=== PATIENT | male | born 1965 | race Caucasian/White ===

== ENCOUNTER 2018-10-06 22:36 | Observation (INO) ==
[2018-10-06] MEDS ORDERED: Aspirin 325 MG Tablet PO ONE (22:41)
--- NOTE | 2018-10-06 23:01 | XR ---
EXAM DATE: 10/06/2018 10:56 PM EST AGE/SEX: 53 years / Male INDICATIONS: Chest pain. CLINICAL DATA: This is the patient's initial encounter. Patient reports that signs and symptoms have been present for 1 day and indicates a pain score of 3/10. MEDICAL/SURGICAL HISTORY: Hypertension. . Bilateral foot surgery. COMPARISON: No prior exams available for comparison. FINDINGS: A single AP view of the chest demonstrates the lungs to be symmetrically aerated without evidence of mass, infiltrate or effusion. The cardiomediastinal contours are unremarkable. Osseous structures a re intact. CONCLUSION: No acute cardiopulmonary process. Electronically signed by: Harshad Ramos MD Board Certified Radiologist 10/06/2018 10:59 PM EST
--- NOTE | 2018-10-06 23:02 | ED ---
HPI General Chief Complaint: Chest Pain Stated Complaint: Chest Pain Time Seen by Provider: 10/06/18 22:40 Source: patient and family Mode of arrival: ambulatory Limitations: no limitations History of Present Illness HPI narrative: Mr Maier is a 53 year old male who presents to the ED via [facility] for evaluation of chest pain that began several days ago. He describes the pain as intermittent pressure over the left chest that he rates as a 7-8/10 when it occurs. He denies pain currently. He states that when the pain occurs he also has lightheadedness, SOB with exertion, and tingling in the left arm. He states he has never had an episode like this before. He denies radiation. He denies cough, nausea, vomiting, syncope, changes in urination, or abdominal pain. His PMH is significant for hypercholesterolemia and HTN. He has a family history of cardiac disease. The patient has taken 7 baby ASA today, 4 at 5pm and 3 more at 9pm without relief. The patient is a former smoker, having quit many years ago, and denies alcohol or drug use. Related Data Home Medications Medication Instructions Recorded Confirmed aspirin 81 mg PO DAILY 10/06/18 10/06/18 atorvastatin 20 mg PO QPM 10/06/18 10/06/18 losartan 50 mg PO DAILY 10/06/18 10/06/18 Allergies Allergy/AdvReac Type Severity Reaction Status Date / Time No Known Allergies Allergy Verified 10/06/18 22:38 Review of Systems ROS: all other systems reviewed are negative PMFSH Medical History Medical History HTN (hypertension) (Acute) High cholesterol (Acute) Surgical History Surgical History History of orthopedic surgery (Acute) Social History Social History Substance History: No History of Abuse Second Hand Smoke Exposure: No Smoking Status: Former smoker Tobacco Type: Cigarettes How Often Do You Have a Drink Containing Alcohol: Monthly or less Recent Travel in [facility] within the Last 8 Weeks: No Recent Out of Country Travel within the Last 8 Weeks: No Immunization History Tetanus Immunization: >5 Years Exam Narrative Exam Narrative: GENERAL: Patient is a well developed well nourished patient in [facility]. SKIN: Warm and dry. HEAD: Atraumatic. Normocephalic. EYES: Pupils equal and round and reactive to light. No scleral icterus. No injection or drainage. ENT: No nasal bleeding or discharge. Mucous membranes pink and moist. NECK: Trachea midline. No JVD. CARDIOVASCULAR: Regular rate and rhythm. No murmurs rubs or gallops. No pain with palpation of the sternum or ribs on the left. RESPIRATORY: No accessory muscle use. Clear to auscultation. Breath sounds equal bilaterally. GASTROINTESTINAL: Abdomen soft, non-tender, nondistended. Hepatic and splenic margins not palpable. MUSCULOSKELETAL: Extremities without clubbing, cyanosis, or edema. No obvious deformities. Full ROM of the upper and lower extremities bilaterally. 2+ pulses in the upper and lower extremities bilaterally. NEUROLOGICAL: Awake and alert. No obvious cranial nerve deficits. Motor grossly within normal limits. Five out of 5 muscle strength in the arms and legs. Normal speech. PSYCHIATRIC: Appropriate mood and affect; insight and judgment normal. Course Initial Documented Vital Signs Temperature 98.4 F 10/06/18 22:37 Pulse Rate 83 10/06/18 22:37 Respiratory Rate 18 10/06/18 22:37 Blood Pressure 186/106 H 10/06/18 22:37 Pulse Oximetry 98 10/06/18 22:37 Last Documented Vital Signs Temperature 98.0 F 10/07/18 01:15 Pulse Rate 87 10/07/18 01:50 Respiratory Rate 16 10/07/18 01:15 Blood Pressure 130/79 10/07/18 01:15 Pulse Oximetry 97 10/07/18 01:15 Medical Decision Making MDM Narrative Medical decision making narrative: 53 yo male here for evaluation of chest pain. Labs and imaging ordered. No aspirin or nitro given as patient asymptomatic and has already had 325 mg of aspirin. Labs and imaging showed no sign of acute disease. Will admit to chest pain center. Discussed with my attending Dr Rainey who agrees. Family and patient agree with plan. Patient admitted to chest pain center by me. Medical Screen Exam Complete: Yes Emergency Medical Condition: Yes Differential Diagnosis Differential Diagnosis: chest pain vs ACS vs atypical chest pain vs unstable angina vs NSTEMI Medical Records Medical records reviewed: Yes I reviewed the patient's medical records. Lab Data Lab results reviewed: Yes I reviewed the patient's lab results. Result diagrams: 10/06/18 22:56 10/06/18 22:56 Lab Results 10/06/18 10/06/18 10/06/18 Range/Units 22:56 22:56 22:56 WBC 7.4 (4.0-11.0) th/mm3 RBC 5.14 (4.50-5.90) mil/mm3 Hgb 16.8 (13.0-17.0) gm/dL Hct 47.5 (39.0-51.0) % MCV 92.3 (80.0-100.0) fL MCH 32.6 (27.0-34.0) pg MCHC 35.3 (32.0-36.0) % RDW 13.7 (11.6-17.2) % Plt Count 186 (150-450) th/mm3 MPV 8.5 (7.0-11.0) fL Neut % (Auto) 58.1 (16.0-70.0) % Lymph % (Auto) 31.4 (9.0-44.0) % Dubois % (Auto) 8.1 H (0.0-8.0) % Eos % (Auto) 1.6 (0.0-4.0) % Baso % (Auto) 0.8 (0.0-2.0) % Neut # (Auto) 4.3 (1.8-7.7) th/mm3 Lymph # (Auto) 2.3 (1.0-4.8) th/mm3 Dubois # (Auto) 0.6 (0.0-0.9) th/mm3 Eos # (Auto) 0.1 (0.0-0.4) th/mm3 Baso # (Auto) 0.1 (0.0-0.2) th/mm3 WBC Differential . Differential Comment Auto diff final PT 10.0 (9.8-11.6) sec INR 1.0 Ratio APTT 28.2 (23.4-31.7) sec Sodium 139 (136-145) meq/L Potassium 4.5 (3.5-5.1) meq/L Chloride 104 (98-107) meq/L Carbon Dioxide 27.5 (21.0-32.0) meq/L Anion Gap 8 (5-15) meq/L BUN 15 (7-18) mg/dL Creatinine 1.05 (0.60-1.30) mg/dL Estimated GFR 73 L (>89) mL/min Random Glucose 85 (74-106) mg/dL Calcium 9.0 (8.5-10.1) mg/dL Magnesium 2.1 (1.5-2.5) mg/dL Total Bilirubin 0.8 (0.2-1.0) mg/dL AST 23 (15-37) U/L ALT 34 (12-78) U/L Alkaline Phosphatase 56 (45-117) U/L Total Creatine Kinase 193 (39-308) U/L CK-MB (CK-2) 1.7 (0.5-3.6) ng/mL Troponin I Less than 0.02 L (0.02-0.05) ng/mL Total Protein 8.2 (6.4-8.2) g/dL Albumin 4.3 (3.4-5.0) g/dL 10/07/18 Range/Units 02:17 WBC (4.0-11.0) th/mm3 RBC (4.50-5.90) mil/mm3 Hgb (13.0-17.0) gm/dL Hct (39.0-51.0) % MCV (80.0-100.0) fL MCH (27.0-34.0) pg MCHC (32.0-36.0) % RDW (11.6-17.2) % Plt Count (150-450) th/mm3 MPV (7.0-11.0) fL Neut % (Auto) (16.0-70.0) % Lymph % (Auto) (9.0-44.0) % Dubois % (Auto) (0.0-8.0) % Eos % (Auto) (0.0-4.0) % Baso % (Auto) (0.0-2.0) % Neut # (Auto) (1.8-7.7) th/mm3 Lymph # (Auto) (1.0-4.8) th/mm3 Dubois # (Auto) (0.0-0.9) th/mm3 Eos # (Auto) (0.0-0.4) th/mm3 Baso # (Auto) (0.0-0.2) th/mm3 WBC Differential Differential Comment PT (9.8-11.6) sec INR Ratio APTT (23.4-31.7) sec Sodium (136-145) meq/L Potassium (3.5-5.1) meq/L Chloride (98-107) meq/L Carbon Dioxide (21.0-32.0) meq/L Anion Gap (5-15) meq/L BUN (7-18) mg/dL Creatinine (0.60-1.30) mg/dL Estimated GFR (>89) mL/min Random Glucose (74-106) mg/dL Calcium (8.5-10.1) mg/dL Magnesium (1.5-2.5) mg/dL Total Bilirubin (0.2-1.0) mg/dL AST (15-37) U/L ALT (12-78) U/L Alkaline Phosphatase (45-117) U/L Total Creatine Kinase 169 (39-308) U/L CK-MB (CK-2) (0.5-3.6) ng/mL Troponin I Less than 0.02 L (0.02-0.05) ng/mL Total Protein (6.4-8.2) g/dL Albumin (3.4-5.0) g/dL Imaging Data Attestation: I personally reviewed and interpreted this imaging study as follows : Radiologist's impression: Chest X-Ray 10/06/18 22:41 CONCLUSION: No acute cardiopulmonary process. ECG Data Attestation: I personally reviewed and interpreted this ECG as follows: Interpretation: EKg shows sinus rhythm with no sign of acute ischemia or arrythmia read by me and attending. Discharge Plan Discharge Disposition Patient Disposition: ED Admit(ED Internal Use Only) Discharge Order Discharge Orders: ED Use Only Admit Order (Routine); Ordered 10/07/18 Ordered By: Brett Alvarez Discharge Details Diagnosis: Chest pain, rule out acute myocardial infarction Physicians Team ED Provider: Fara Rainey ED Midlevel Provider: Brett Alvarez Primary Care Provider: Primary Care WilliamiGia Attending Provider: Ridge Melgar Status ED Status: Left Department Discharge Information Discharge Date/Time: 10/07/18 01:20
[2018-10-06 23:16] LABS: Baso # (Auto) 0.1 th/mm3 (0.0-0.2); Baso % (Auto) 0.8 % (0.0-2.0); Eos # (Auto) 0.1 th/mm3 (0.0-0.4); Eos % (Auto) 1.6 % (0.0-4.0); Hematocrit 47.5 % (39.0-51.0); Hemoglobin 16.8 gm/dL (13.0-17.0); Lymph # (Auto) 2.3 th/mm3 (1.0-4.8); Lymph % (Auto) 31.4 % (9.0-44.0); Mean Corpuscular HGB Conc 35.3 % (32.0-36.0); Mean Corpuscular Hemoglobin 32.6 pg (27.0-34.0); Mean Corpuscular Volume 92.3 fL (80.0-100.0); Mean Platelet Volume 8.5 fL (7.0-11.0); Mono # (Auto) 0.6 th/mm3 (0.0-0.9); Mono % (Auto) 8.1 % (0.0-8.0); Neut # (Auto) 4.3 th/mm3 (1.8-7.7); Neut % (Auto) 58.1 % (16.0-70.0); Platelet Count 186 th/mm3 (150-450); Red Blood Count 5.14 mil/mm3 (4.50-5.90); Red Cell Distribution Width 13.7 % (11.6-17.2); White Blood Count 7.4 th/mm3 (4.0-11.0)
[2018-10-06 23:30] LABS: Activated Partial Thrombo Time 28.2 sec (23.4-31.7)
[2018-10-06 23:51] LABS: Alanine Aminotransferase 34 U/L (12-78)
[2018-10-06 23:55] LABS: Alkaline Phosphatase 56 U/L (45-117); Creatine Kinase 193 U/L (39-308); Total Protein 8.2 g/dL (6.4-8.2)
[2018-10-06 23:56] LABS: Albumin 4.3 g/dL (3.4-5.0); Anion Gap 8 meq/L (5-15); Aspartate Aminotransferase 23 U/L (15-37); Blood Urea Nitrogen 15 mg/dL (7-18); Carbon Dioxide 27.5 meq/L (21.0-32.0); Chloride 104 meq/L (98-107); Glomerular Filtration Rate 73 mL/min (>89); Glucose,Random 85 mg/dL (74-106); Magnesium 2.1 mg/dL (1.5-2.5); Potassium 4.5 meq/L (3.5-5.1); Sodium 139 meq/L (136-145)
[2018-10-07 00:07] LABS: Creatine Kinase MB 1.7 ng/mL (0.5-3.6)
[2018-10-07 02:55] LABS: Creatine Kinase 169 U/L (39-308)
[2018-10-07 05:52] LABS: Creatine Kinase 135 U/L (39-308)
[2018-10-07 07:30] VITALS: BP 162/100; PULSE 92; RESP 18; TEMP 98.4; O2SAT 98
--- NOTE | 2018-10-07 08:15 | P.HPCA ---
History of Present Illness Primary Care Physician: Dr. Solorzano Chief Complaint: Chest pain History of Present Illness: 53 year old male with history of hypertension and hyperlipidemia presents to ER for further evaluation of chest pain. Onset 2 days ago. Describing a " fluttering sensation with skipped heart beats." Duration hours. Yesterday again felt fluttering sensation for hours, resolving over time. A few hours later, while driving home developed chest pain. Location left anterior chest. Characterized tight squeeze. No associated symptoms of nausea, vomiting, dyspnea , or diaphoresis. Duration 3 minutes. No radiation, although reports left arm/ hand was "tingling." No precipitating or relieving factors. Once home took a 3 hour nap and at that time encouraged him to check bp at [employer]. Reports bp reading 167/97 and 160/100. Due to combined symptoms over last 2 days, came to ER for further evaluation. No recent illness, cough, or injury. Past cardiac testing None Social history Known hypertension and hyperlipidemia. No known CAD or diabetes. Former smoker, quit many years ago. No alcohol or recreational drug use. . Endorses an active lifestyle. 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 Family history Positive for early onset cardiovascular disease. Father from [place] age 52. Grandfather from [place] age 62. - Diagnosis (1) Chest pain, rule out acute myocardial infarction (2) History of hypertension (3) History of hyperlipidemia Review of Systems All other systems reviewed negative except as stated in HPI PMFSH - History History Provided By: Patient - Medical History Medical History: Medical History (Last Reviewed 10/07/18 @ 07:54 by COLBY Patrick) HTN (hypertension) High cholesterol - Surgical History Surgical History: Surgical History (Last Reviewed 10/07/18 @ 07:54 by COLBY Patrick) History of orthopedic surgery - Family History Family History: Family History (Last Updated 10/07/18 @ 08:06 by COLBY Patrick) Father Myocardial infarct Grandparent Myocardial infarct - Social History I have reviewed the patient's Social History: Yes - Tobacco History Second Hand Smoke Exposure: No Smoking Status: Former smoker Tobacco Type: Cigarettes - Alcohol History How Often Do You Have a Drink Containing Alcohol: Monthly or less - Substance Use History Substance History: No History of Abuse - Travel History Recent Travel in the [place] Within the Last 8 Weeks: No Recent Travel Out of the Country Within the Last 8 Weeks: No - Immunization History Tetanus Immunization: >5 Years Medications and Allergies Active Medications: Active Medications Losartan Potassium (Cozaar) 50 mg PO DAILY GABY Sodium Chloride (Ns Flush) 2 ml IV.FLUSH PRN PRN PRN Reason: FLUSH AFTER USING IV ACCESS Sodium Chloride (Ns Flush) 2 ml IV.FLUSH BID GABY Allergies Allergy/AdvReac Type Severity Reaction Status Date / Time No Known Allergies Allergy Verified 10/06/18 22:38 Home Medications Medication Instructions Recorded Confirmed Type aspirin 81 mg PO DAILY 10/06/18 10/06/18 History atorvastatin 20 mg PO QPM 10/06/18 10/06/18 History losartan 50 mg PO DAILY 10/06/18 10/06/18 History Exam Vital signs: Vital Signs 10/06/18 22:37 10/06/18 22:48 10/06/18 22:52 Temperature 98.4 F Pulse Rate 83 93 H 93 H Respiratory Rate 18 19 Blood Pressure 186/106 H 181/94 H Pulse Oximetry 98 97 10/06/18 23:00 10/06/18 23:47 10/07/18 01:02 Temperature Pulse Rate 77 71 Respiratory Rate 17 16 Blood Pressure 148/78 H 124/75 Pulse Oximetry 97 94 L 97 10/07/18 01:15 10/07/18 01:50 10/07/18 04:00 Temperature 98.0 F 99.1 F Pulse Rate 70 87 73 Respiratory Rate 16 16 Blood Pressure 130/79 118/74 Pulse Oximetry 97 96 10/07/18 07:16 10/07/18 07:29 Temperature 98.4 F Pulse Rate 92 H Respiratory Rate 18 Blood Pressure 162/100 H Pulse Oximetry 96 98 Intake & Output 10/06/18 10/07/18 10/07/18 18:59 06:59 18:59 Weight 98.43 kg Other: Date of Last Bowel Movement 10/06/18 Weight On Admission 98.43 kg Narrative: GENERAL: Alert WN, WD, NAD, pleasant, overweight male HEAD: NC, AT EYES: Sclera clear, conjunctiva without injection, pupils equal and round ENT: Mucous membranes pink and moist NECK: Supple, no masses, trachea midline CV: RRR, without murmur, rub, gallop, no JVD, S1-S2. Chest wall nontender to palpation. RESP: Clear lungs throughout bilateral, no crackles, wheeze, rhonchi, symmetrical chest rise, nonlabored, able to speak in full sentences ABD: Soft, NT, ND, no masses, positive bowel tones EXT: Pulses +2x4, no dependent edema MS: Normal tone x4 extremities, nontender, no obvious deformities, full range of motion NEURO: Motor strength 5/5 PSYCH: A+O x3, pleasant affect, appropriate speech, mood, insight and judgment SKIN: Normal turgor, normal texture, no lesions, no rashes, brisk cap refill, even hair distribution Results 10/06/18 22:56 18 22:56 Cardiac Enzymes 18 18 10/07/18 Range/Units 22:56 02:17 05:10 AST 23 (15-37) U/L CK-MB (CK-2) 1.7 (0.5-3.6) ng/mL Troponin I Less than 0.02 L Less than 0.02 L Less than 0.02 L (0.02-0.05) ng/mL Coagulation 10/06/18 Range/Units 22:56 PT 10.0 (9.8-11.6) sec APTT 28.2 (23.4-31.7) sec CBC 10/06/18 Range/Units 22:56 WBC 7.4 (4.0-11.0) th/mm3 RBC 5.14 (4.50-5.90) mil/mm3 Hgb 16.8 (13.0-17.0) gm/dL Hct 47.5 (39.0-51.0) % Plt Count 186 (150-450) th/mm3 Neut # (Auto) 4.3 (1.8-7.7) th/mm3 Lymph # (Auto) 2.3 (1.0-4.8) th/mm3 [place]offey # (Auto) 0.6 (0.0-0.9) th/mm3 Eos # (Auto) 0.1 (0.0-0.4) th/mm3 Baso # (Auto) 0.1 (0.0-0.2) th/mm3 Comprehensive Metabolic Panel 10/06/18 Range/Units 22:56 Sodium 139 (136-145) meq/L Potassium 4.5 (3.5-5.1) meq/L Chloride 104 (98-107) meq/L Carbon Dioxide 27.5 (21.0-32.0) meq/L BUN 15 (7-18) mg/dL Creatinine 1.05 (0.60-1.30) mg/dL Calcium 9.0 (8.5-10.1) mg/dL AST 23 (15-37) U/L ALT 34 (12-78) U/L Alkaline Phosphatase 56 (45-117) U/L Total Protein 8.2 (6.4-8.2) g/dL Albumin 4.3 (3.4-5.0) g/dL Intake and Output 10/06/18 10/07/18 10/07/18 22:59 06:59 14:59 Other: Date of Last Bowel Movement 10/06/18 Weight 98.43 kg 98.43 kg Weight On Admission 98.43 kg - Imaging and Cardiology Imaging: Impressions Chest X-Ray 10/06/18 22:41 CONCLUSION: No acute cardiopulmonary process. EKG interpretations - EKG EKG results cardiology: sinus rhythm (Right bundle branch block) Caprini VTE Risk Assessment Caprini VTE Risk Assessment: No/Low Risk (score <= 1) Caprini Risk Assessment Model: Point Value = 1 Point Value = 2 Point Value = 3 Point Value = 5 Age 41-60 Minor surgery BMI > 25 kg/m2 Swollen legs Varicose veins or History of unexplained or recurrent spontaneous Oral contraceptives or hormone replacement Sepsis (< 1 month) Serious lung disease, including pneumonia (< 1 month) Abnormal pulmonary function Acute myocardial infarction Congestive heart failure (< 1 month) History of inflammatory bowel disease Medical patient at bed rest Age 61-74 Arthroscopic surgery Major open surgery (> 45 min) Laparoscopic surgery (> 45 min) Malignancy Confined to bed (> 72 hours) Immobilizing plaster cast Central venous access Age >= 75 History of VTE Family history of VTE Factor V Leiden Prothrombin [id number] Lupus anticoagulant Anticardiolipin antibodies Elevated serum homocysteine Heparin-induced thrombocytopenia Other congenital or acquired thrombophilia Stroke (< 1 month) Elective arthroplasty Hip, pelvis, or leg fracture Acute spinal cord injury (< 1 month) Prophylaxis Regimen: Total Risk Factor Score Risk Level Prophylaxis Regimen 0-1 Low Early ambulation 2 Moderate Order ONE of the following: *Sequential Compression Device (SCD) *Heparin 5000 units SQ BID 3-4 Higher Order ONE of the following medications: *Heparin 5000 units SQ TID *Enoxaparin/Lovenox 40 mg SQ daily (WT < 150 kg, CrCl > 30 mL/min) *Enoxaparin/Lovenox 30 mg SQ daily (WT < 150 kg, CrCl > 10-29 mL/min) *Enoxaparin/Lovenox 30 mg SQ BID (WT < 150 kg, CrCl > 30 mL/min) AND/OR *Sequential Compression Device (SCD) 5 or more Highest Order ONE of the following medications: *Heparin 5000 units SQ TID (Preferred with Epidurals) *Enoxaparin/Lovenox 40 mg SQ daily (WT < 150 kg, CrCl > 30 mL/min) *Enoxaparin/Lovenox 30 mg SQ daily (WT < 150 kg, CrCl > 10-29 mL/min) *Enoxaparin/Lovenox 30 mg SQ BID (WT < 150 kg, CrCl > 30 mL/min) AND *Sequential Compression Device (SCD) Assessment and Plan - Assessment (1) Chest pain, rule out acute myocardial infarction Code(s): R07.9 - Chest pain, unspecified Status: Acute Plan: Admitted chest pain center. ACS ruled out 3 sets of EKGs and cardiac enzymes. Seen and evaluated by Dr. Jordi Estrella. Proceed with nuclear exercise cardiac testing this a.m. (2) History of hypertension Code(s): Z86.79 - Personal history of other diseases of the circulatory system Status: Chronic Plan: Continue losartan. (3) History of hyperlipidemia Code(s): Z86.39 - Personal history of other endocrine, nutritional and metabolic disease Status: Chronic Plan: Continue atorvastatin. Encouraged him to discuss with his primary care provider increasing dose of statin therapy due to family early onset cardiovascular disease. H&P: Quality - VTE Deep Vein Thrombosis/Pulmonary Embolism Present on Admission: No
--- NOTE | 2018-10-07 11:49 | NM ---
EXAM DATE: 10/07/2018 11:37 AM EST AGE/SEX: 53 years / Male INDICATIONS: Angina. . Chest pain. CLINICAL DATA: This is the patient's initial encounter. Patient reports that signs and symptoms have been present for 2 days and indicates a pain score of 3/10. MEDICAL/SURGICAL HISTORY: Hypercholesterolemia. Hypertension. None. COMPARISON: No prior exams available for comparison. DOSE: 8.8 mCi Tc 99m Myoview at rest 25.4 mCi [id number] at stress REST HEART RATE: 99 BPM TARGET HEART RATE: 140 BPM MAX HEART RATE: 141 BPM REST BLOOD PRESSURE: 128/80 mmHg MAX BLOOD PRESSURE: 130/80 mmHg EJECTION FRACTION: 70 % TECHNIQUE: The patient underwent upright treadmill exercise in the chest pain center. Continuous EC G tracing was monitored during stress. Gated SPECT imaging was performed after stress, and conventio nal SPECT imaging was performed at rest. The examination was performed on a SPECT/CT scanner, both a ttenuation-corrected and non-corrected datasets were reviewed. FINDINGS: Distribution: The maximum perfused segment at stress is in the anterior lateral wall Perfusion: The pattern of perfusion at stress is within normal limits. Gated Study: There are intact wall motion and wall thickening without hypokinetic or dyskinetic segme nts. The ejection fraction is calculated at 70%. RISK CATEGORY: Low (<1% Annual Motality Rate) CONCLUSION: 1. Negative for stress-induced ischemia. Electronically signed by: Demarcus Kenney MD Board Certified Radiologist 10/07/2018 11:48 AM EST
--- NOTE | 2018-10-07 15:10 | ECG ---
Date Performed: 10/07/2018 Time Performed: 05:08:52 PTAGE: 53 years EKG: Sinus rhythm RIGHT BUNDLE BRANCH BLOCK ABNORMAL ECG PREVIOUS TRACING : 10/07/2018 02.40 Since previous tracing, no significant change noted DOCTOR: Jordi Estrella Interpretating Date/Time 10/07/2018 15:09:30
--- NOTE | 2018-10-07 15:11 | ECG ---
Date Performed: 10/06/2018 Time Performed: 22:46:35 PTAGE: 53 years EKG: Sinus rhythm POSSIBLE LEFT ATRIAL ENLARGEMENT RIGHT BUNDLE BRANCH BLOCK ABNORMAL ECG PREVIOUS TRACING : 10/06/2018 22.45 Since previous tracing, no significant change noted DOCTOR: Jordi Estrella Interpretating Date/Time 10/07/2018 15:10:10
--- NOTE | 2018-10-07 15:11 | ECG ---
Date Performed: 10/07/2018 Time Performed: 02:40:30 PTAGE: 53 years EKG: Sinus rhythm WITH FREQUENT SUPRAVENTRICULAR PREMATURE COMPLEXES RIGHT BUNDLE BRANCH BLOCK ABNORMAL ECG NO PREVIOUS TRACING DOCTOR: Jordi Estrella Interpretating Date/Time 10/07/2018 15:09:37
--- NOTE | 2018-10-07 15:16 | TR ---
Date Performed: 10/07/2018 Time Performed: 10:51:50 DOCTOR: Jordi Estrella DRUG LIST: CLINICAL HISTORY: CHEST PAIN REASON FOR TEST: REASON FOR ENDING: OBSERVATION: CONCLUSION: Geo protocol completed. Stopped sec to exceeding target heart rate. Maximum XE=738 Max HR Achieved=85.0% Maximum GP=846/78 Total Exercise Time=5:42. Frequent PACs prior to exam. Good exercise tolerance. Normal bp response. No reprod chest discomfort. Recovery quick and unremarkab.e Nuclear imaging pending. Baseline right bundle branch. COMMENTS: Exercise testing showed RBBB but no ST changes. Nuclear imaging is pending
== END 2018-10-07 13:08 | disposition home or self-care (01) ==
LOC: NEPE 22:36 → NEDA 22:36 → NEPFCDU 10-07 01:10
PROVIDERS: ADMIT Internal Medicine Interventional Cardiology; ATTEND Internal Medicine Interventional Cardiology
DX: I10 Essential (primary) hypertension; Z87.891 Personal history of nicotine dependence; Z79.899 Other long term (current) drug therapy; R42 Dizziness and giddiness; Z79.82 Long term (current) use of aspirin; E78.00 Pure hypercholesterolemia, unspecified; R20.2 Paresthesia of skin; I45.10 Unspecified right bundle-branch block; R07.9 Chest pain, unspecified; Z82.49 Family history of ischemic heart disease and other diseases of the circulatory system; R06.02 Shortness of breath